=== PATIENT | female | born 2000 | race Two or more races ===

== ENCOUNTER 2024-08-06 09:34 | Outpatient (AMB) | payer MEDICAID, SELFPAY ==
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
[2024-08-06 09:41] VITALS: BP 112/77; PULSE 76; RESP 16; TEMP 36.7; O2SAT 98; BMI 24.0
== END 2024-08-06 10:01 | disposition home or self-care (01) ==
LOC: HODAHC 09:34
PROVIDERS: Supervising Provider Internal Medicine
DX: J02.9 Acute pharyngitis, unspecified (principal)
CPT/HCPCS: 99203; G0463

== ENCOUNTER 2024-09-19 14:39 | Outpatient (AMB) | payer MEDICAID, SELFPAY ==
[2024-09-19 14:45] VITALS: BP 116/79; PULSE 90; RESP 18; TEMP 36.6; O2SAT 97; BMI 25.1
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
== END 2024-09-19 15:35 | disposition home or self-care (01) ==
LOC: HODAHC 14:39
PROVIDERS: Supervising Provider Internal Medicine
DX: Z11.1 Encounter for screening for respiratory tuberculosis (principal)
CPT/HCPCS: 90471; 90714; 99213; G0463